=== PATIENT | male | born 1985 | race Caucasian/White ===

== ENCOUNTER 2022-08-27 17:34 | Emergency (ER) | payer OTHER, SELFPAY ==
[2022-08-27 17:43] VITALS: BP 128/72; PULSE 89; RESP 16; TEMP 36.6; O2SAT 98; BMI 32.5
--- NOTE | 2022-08-27 17:55 | DI.US.S_ITS ---
PROCEDURE: US SCROTUM INDICATIONS: LEFT TESTICLE PAIN TECHNIQUE: Real-time scanning was performed of the scrotum and testicles, with image documentation. Color and pulse Doppler interrogation was performed of both testicles. COMPARISON: [facility], , US ABDOMEN LIMITED, 08/27/2022, 18:38. FINDINGS: Right: Testicle is normal in size at 1.7 x 3.2 x 2.1 cm, and homogenous in echotexture. Epididymis is normal in overall size and multiple right epididymal head cysts are seen, with the largest measuring up to 5 mm. Overlying scrotal skin is normal in thickness. Left: Testicle is normal in size at 4.2 x 2.7 x 2.2 cm, and homogeneous in echotexture. Epididymis is normal in overall size and multiple left epididymal head cysts can be seen that measure up to 6 mm. Overlying scrotal skin is normal in thickness. Doppler: Color and pulse Doppler demonstrate normal and symmetric arterial flow in both testicles. Prominent scrotal vessels can be seen involving the left inferior scrotum, which are not significantly change between Valsalva and non Valsalva imaging. IMPRESSION: Prominent vessels can be seen involving the left scrotum. These may be related to a varicocele, although the do not enlarged with Valsalva maneuver. Small bilateral epididymal head cysts are seen, which are regarded to be benign. Dictated by: Cuong Ramirez M.D. on 08/27/2022 at 17:51 Approved by: Cuong Ramirez M.D. on 08/27/2022 at 17:53
--- NOTE | 2022-08-27 18:04 | DI.US.S_ITS ---
PROCEDURE: US ABDOMEN LIMITED INDICATIONS: LEFT LOWER QUADRANT INTERMITTENT BURNING. ?HERNIA TECHNIQUE: Real-time focused scanning was performed of the abdomen, with image documentation. COMPARISON: [facility], US, US SCROTUM, 08/27/2022, 18:15. FINDINGS: Scanning is performed of both groins, including with Valsalva maneuver. Negative for hernia. No masses or fluid collections are seen. IMPRESSION: Normal ultrasound of the groins, without hernias or masses seen. Dictated by: Cuong Ramirez M.D. on 08/27/2022 at 17:51 Approved by: Cuong Ramirez M.D. on 08/27/2022 at 17:51
--- NOTE | 2022-08-27 18:05 | ED_ITS ---
HPI - Male Genitourinary <Poppy Hameed PA-C - Last Filed: 08/27/22 19:57> General Chief complaint: Urogenital-Male Stated complaint: testicular pain, swelling, one day Time Seen by Provider: 08/27/22 17:48 Source: patient Mode of arrival: Ambulatory History of Present Illness HPI Narrative: Patient is a 37-year-old male reporting for evaluation of left testicular pain starting yesterday. He says that he is noticed some swelling in his left testicle. He says that the pain comes and goes in his left testicle. He says that it seems to hurt worse while walking. He notes that 1 month ago was the last time he rode his motorcycle and denies any issues right after riding. He does note that he has been on the [employer] shift so often works 10 or 12 hour days 7 days a week. 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 He also notes a sensation of burning in his left lower quadrant which has been present for the last 4 hours and is constant. He denies any changes to his bowel movements, and reports a normal BM this AM. He denies any other abdominal pain. He denies taking medicine for any chronic conditions. For family history, he reports his father at age 60 from an [place] and also had lung cancer. He denies any history of testicular cancer in his family. Related Data Allergies Allergy/AdvReac Type Severity Reaction Status Date / Time No Known Drug Allergies Allergy Verified 08/27/22 17:43 Review of Systems <Poppy Hameed PA-C - Last Filed: 08/27/22 19:57> Review of Systems Narrative: per HPI Patient History <Poppy Hameed PA-C - Last Filed: 08/27/22 19:57> Social History Smoking Status: Current every day smoker Smoking Status: Current every day smoker tobacco type: cigarettes alcohol intake frequency: holidays/special occasions only Substance Use Type: does not use Exam <Poppy Hameed PA-C - Last Filed: 08/27/22 19:57> Initial Vital Signs Initial Vital Signs: Vital Signs Temperature 98 F 08/27/22 17:43 Pulse Rate 89 08/27/22 17:43 Respiratory Rate 16 08/27/22 17:43 Blood Pressure 128/72 08/27/22 17:43 Pulse Oximetry 98 08/27/22 17:43 Oxygen Delivery Method Room Air 08/27/22 17:43 GENERAL: 37 year old patient appears stated age. Well-developed patient, in no acute distress. HEAD: Atraumatic. Normocephalic. EYES: Pupils equal round. No scleral icterus. No injection or drainage. CARDIOVASCULAR: Regular rate and rhythm without murmurs, gallops, or rubs. RESPIRATORY: Clear to auscultation. Breath sounds equal bilaterally. No wheezes, rales, or rhonchi. GASTROINTESTINAL: Some mild pain to deep palpation in left lower quadrant, abdomen soft, otherwise nontender, and nondistended. : No significant evidence of testicular swelling noted on left side. Scrotum has no erythema. Varicocele present on left testicle. No palpation of hernia in inguinal canal. No lymphadenopathy in groin. Testicles are similar in size and smooth RN Bryson Major was present as clinical informatics physician. EXTREMITIES: No edema or joint tenderness. BACK: Nontender without deformity or crepitance. No flank tenderness. NEURO: AOx3. SKIN: No rash or erythema of visible areas <Chiquita Allred MD - Last Filed: 08/28/22 05:54> Initial Vital Signs Initial Vital Signs: Vital Signs Temperature 98 F 08/27/22 17:43 Pulse Rate 89 08/27/22 17:43 Respiratory Rate 16 08/27/22 17:43 Blood Pressure 128/72 08/27/22 17:43 Pulse Oximetry 98 08/27/22 17:43 Oxygen Delivery Method Room Air 08/27/22 17:43 Course <Poppy Hameed PA-C - Last Filed: 08/27/22 19:57> Orders Ordered: ED Orders 08/27/22 17:55 US scrotum Stat 08/27/22 18:04 US abdomen limited Stat 08/27/22 18:06 Chlamydia Gonorrhea PCR -URINE Stat 08/27/22 18:13 Urinalysis Screen (Dip Only) Stat Vital Signs Vital signs: Vital Signs - 8 hr 08/27/22 17:43 08/27/22 19:32 Temperature 98 F Pulse Rate 89 74 Respiratory Rate 16 Blood Pressure 128/72 123/71 Pulse Oximetry 98 98 Oxygen Delivery Method Room Air Room Air <Chiquita Allred MD - Last Filed: 08/28/22 05:54> Orders Ordered: ED Orders 08/27/22 17:55 US scrotum Stat 08/27/22 18:04 US abdomen limited Stat 08/27/22 18:06 Chlamydia Gonorrhea PCR -URINE Stat 08/27/22 18:13 Urinalysis Screen (Dip Only) Stat Vital Signs Vital signs: Vital Signs - 8 hr 08/27/22 17:43 08/27/22 19:32 Temperature 98 F Pulse Rate 89 74 Respiratory Rate 16 Blood Pressure 128/72 123/71 Pulse Oximetry 98 98 Oxygen Delivery Method Room Air Room Air MDM - Male Genitourinary <Poppy Hameed PA-C - Last Filed: 08/27/22 19:57> Lab Data Labs: Lab Results 08/27/22 08/27/22 Range/Units 19:12 19:12 Urine Color Yellow Urine Appearance Clear Urine pH 6.5 (4.5-8.0) Ur Specific [place] 1.010 (1.000-1.035) Urine Protein Negative (Negative) Urine Glucose (UA) Negative (Negative) g/dL Urine Ketones Negative (NEGATIVE) Urine Occult Blood Negative (Negative) Urine Nitrate Negative (Negative) Urine Bilirubin Negative (NEGATIVE) Urine Urobilinogen 0.2 (0.2) E.U./dL Ur Leukocyte Esterase Negative (NEGATIVE) Ur Chlamydia DNA (PCR) Not detected N gonorrhoeae DNA (PCR) Not detected Urine Dip Bedside Urine Glucose Negative Bedside Urine Bilirubin - Negative Bedside Urine Ketone - Negative Urine Specific [place] 1.010 Bedside Urine Occult Blood - Negative Bedside Urine pH 6.0 Bedside Urine Protein - Negative Bedside Urine Urobilinogen - Negative Bedside Urine Nitrite - Negative Bedside Urine Leukocytes - Negative Esterase Imaging Data US Scrotum: Radiologist's Impression: PROCEDURE:? US SCROTUM ? INDICATIONS:? LEFT TESTICLE PAIN ? TECHNIQUE:? Real-time scanning was performed of the scrotum and testicles, with image documentation.? Color and pulse Doppler interrogation was performed of both testicles.? ? COMPARISON:? [facility], , US ABDOMEN LIMITED, 08/27/2022, 18:38. ? FINDINGS:? Right:? Testicle is normal in size at 1.7 x 3.2 x 2.1 cm, and homogenous in echotexture.? Epididymis is normal in overall size and multiple right epididymal head cysts are seen, with the largest measuring up to 5 mm.? Overlying scrotal skin is normal in thickness.? ? Left:? Testicle is normal in size at 4.2 x 2.7 x 2.2 cm, and homogeneous in echotexture.? Epididymis is normal in overall size and multiple left epididymal head cysts can be seen that measure up to 6 mm.? Overlying scrotal skin is normal in thickness.? ? Doppler:? Color and pulse Doppler demonstrate normal and symmetric arterial flow in both testicles.? ? Prominent scrotal vessels can be seen involving the left inferior scrotum, which are not significantly change between Valsalva and non Valsalva imaging. ? IMPRESSION:? Prominent vessels can be seen involving the left scrotum.? These may be related to a varicocele, although the do not enlarged with Valsalva maneuver. ? Small bilateral epididymal head cysts are seen, which are regarded to be benign. ? ? Dictated by: Cuong Ramirez M.D. on 08/27/2022 at 17:51 ? ? Approved by: Cuong Ramirez M.D. on 08/27/2022 at 17:53 ? US Abdomen: Radiologist's Impression: PROCEDURE: US ABDOMEN LIMITED ? INDICATIONS:? LEFT LOWER QUADRANT INTERMITTENT BURNING. ?HERNIA ? TECHNIQUE:? Real-time focused scanning was performed of the abdomen, with image documentation.? ? [facility], [facility], 08/27/2022, 18:15. ? FINDINGS:? Scanning is performed of both groins, including with Valsalva maneuver.? Negative for hernia.? No masses or fluid collections are seen. ? ? ? IMPRESSION:? Normal ultrasound of the groins, without hernias or masses seen. ? ? Dictated by: Cuong Ramirez M.D. on 08/27/2022 at 17:51 ? ? Approved by: Cuong Ramirez M.D. on 08/27/2022 at 17:51 ? MDM Narrative Medical decision making narrative: 37-year-old male reporting for evaluation of new onset left testicular pain starting yesterday in addition to 4 hours of left lower quadrant burning sensation. Multiple etiologies for patient's symptoms considered including, but not limited to: Testicular torsion, negative hernia, testicular cancer, diverticulitis Prior Charts reviewed: none present Labs reviewed and interpreted by myself: UA showed no blood, leukocytes or nitrites, awaiting G/C Imaging reviewed: No hernia seen on ultrasound, appropriate blood flow noted on testicular ultrasound, scrotum ultrasound showed epididymal head cysts which were noted as benign Consultations: Discussed case with Dr. Allred Discussed with patient that abdominal and scrotal ultrasound did not show sign of hernia nor testicular torsion. Regarding a left lower quadrant pain, we discussed that it could be an early sign of diverticulitis and I cautioned him to watch his symptoms for worsening left abdominal pain, nausea vomiting fever or diarrhea or blood in his stool. Otherwise, he may treat with ibuprofen. Due to patient's continued concern occult hernia missed on abdominal ultrasound, I recommend that he follow up with [facility] and call on Monday to make an appointment. I have included the number in his discharge notes. Findings and discharge diagnosis discussed with patient/family followed by verbalization of understanding Return precautions discussed with patient/family whom verbalize understanding of diagnosis and plan <Chiquita Allred MD - Last Filed: 08/28/22 05:54> Lab Data Labs: Lab Results 08/27/22 08/27/22 Range/Units 19:12 19:12 Urine Color Yellow Urine Appearance Clear Urine pH 6.5 (4.5-8.0) Ur Specific [place] 1.010 (1.000-1.035) Urine Protein Negative (Negative) Urine Glucose (UA) Negative (Negative) g/dL Urine Ketones Negative (NEGATIVE) Urine Occult Blood Negative (Negative) Urine Nitrate Negative (Negative) Urine Bilirubin Negative (NEGATIVE) Urine Urobilinogen 0.2 (0.2) E.U./dL Ur Leukocyte Esterase Negative (NEGATIVE) Ur Chlamydia DNA (PCR) Not detected N gonorrhoeae DNA (PCR) Not detected Urine Dip Bedside Urine Glucose Negative Bedside Urine Bilirubin - Negative Bedside Urine Ketone - Negative Urine Specific [place] 1.010 Bedside Urine Occult Blood - Negative Bedside Urine pH 6.0 Bedside Urine Protein - Negative Bedside Urine Urobilinogen - Negative Bedside Urine Nitrite - Negative Bedside Urine Leukocytes - Negative Esterase Discharge Plan Departure Patient Disposition: Home Clinical Impression: Abdominal pain, acute, left lower quadrant, Left varicocele Activity Restrictions/Additional Instructions: Thank you for coming in to be seen today. You received an ultrasound of your abdomen and scrotum which showed that there is no hernia and there is adequate blood flow to your testicle. They did note a varicocele on exam of left testicle which is an enlarged blood vessel. This is a chronic condition which may sometimes present with a dull pain. I reommend you follow up with your PCP to continue monitoring of this if you experience any changes. Regarding the left lower quadrant pain described, this could be an early finding of diverticulitis which is present in the left lower side of your abdomen. This is often accompanied by fever, worsening left lower abdominal pain and diarrhea. As current recommendations suggest initial treatment of watching and waiting, I recommend you monitor your symptoms. If these symptoms should develop or worsen, I recommend you follow up in the ED. You may take ibuprofen to help with your pain. As discussed, to further evaluate your left lower abdominal pain and concern for occult hernia, please call [facility] at on Mon to make an appointment to further evaluate. Referrals: Miscellaneous,[facility] [Primary Care Provider] - Stand Alone Forms: Patient Portal/API, Work Release Note <Chiquita Allred MD - Last Filed: 08/28/22 05:54> [facility] Att[facility]: I was immediately available in the department for consultation throughout this patient's visit. Chiquita Allred MD
[2022-08-27 19:22] LABS: Appearance Urine UA CLEAR; Bilirubin Urine UA NEGATIVE (NEGATIVE); Color Urine UA YELLOW; Glucose Urine UA NEGATIVE (Negative); Ketones Urine UA NEGATIVE (NEGATIVE); Leukocyte Esterase Urine UA NEGATIVE (NEGATIVE); Nitrite Urine UA NEGATIVE (Negative); Occult Blood Urine UA NEGATIVE (Negative); Protein Urine UA NEGATIVE (Negative); Urobilinogen Urine UA 0.2 E.U./dL (0.2); pH Urine UA 6.5 (4.5-8.0)
[2022-08-27 19:32] VITALS: BP 123/71; PULSE 74; O2SAT 98
[2022-08-27 20:51] LABS: Urine N gonorrhoeae NOT DETECTED
[2022-08-27 21:51] LABS: Urine Chlamydia NOT DETECTED
== END 2022-08-27 20:02 | disposition home or self-care (01) ==
PROVIDERS: Emergency Provider Physician Assistant
DX: I86.1 Scrotal varices (principal); R10.32 Left lower quadrant pain
CPT/HCPCS: 76705; 76870; 81003; 87491; 87591; 99283; 99284